=== PATIENT | male | born 1955 | race Caucasian/White ===

== ENCOUNTER → 2019-04-09 09:58 | Outpatient (CLI) | payer OTHER, SELFPAY ==
[2019-04-11 20:01] LABS: ANA Screen, IFA Negative (Negative)
== END ==
PROVIDERS: Visit Provider Family Medicine
DX: L30.9 Dermatitis, unspecified (principal)
CPT/HCPCS: 36415; 86038

== ENCOUNTER → 2019-10-21 14:01 | Outpatient (CLI) | payer OTHER, SELFPAY ==
[2019-10-21 15:52] LABS: Hemoglobin A1C% w Est Avg Glu 7.3 % (4.0-6.0)
[2019-10-21 16:02] LABS: BUN Creatinine Ratio 35.7 (6-22); Blood Urea Nitrogen 25 mg/dL (9-20); Calcium 9.4 mg/dL (8.4-10.2); Carbon Dioxide 27 mmol/L (22-32); Chloride 101 mmol/L (98-107); Cholesterol 216 mg/dL (140-199); Estimated Glomerular Filt Rate > 60.0 mL/min (>60); Glucose 146 mg/dL (80-110); HDL Cholesterol 92 mg/dL (40-60); HEMOLYSIS 16 (0-50); LDL Cholesterol Calculated 89 mg/dL (<100); Potassium 4.2 mmol/L (3.4-5.1); Sodium 139 mmol/L (137-145); Triglycerides 176 mg/dL (35-150)
[2019-10-21 16:30] LABS: Prostate Specific Antigen Scrn 1.84 ng/mL (0.1-4.0)
== END ==
PROVIDERS: PCP Student in an Organized Health Care Education/Training Program; Visit Provider Student in an Organized Health Care Education/Training Program
DX: E10.9 Type 1 diabetes mellitus without complications (principal); Z12.5 Encounter for screening for malignant neoplasm of prostate
CPT/HCPCS: 36415; 80048; 80061; 83036; G0103

== ENCOUNTER → 2019-11-11 07:55 | Outpatient (CLI) | payer OTHER, SELFPAY ==
--- NOTE | 2019-11-11 07:56 | DI.ECHO.S_ITS ---
[facility] +---------+ : : [address] : [place] [address] : : : : [id number] : : : : Phone: [phone]+ Echocardiogram Report + + :Name: JENNIE MAI Study Date: 11/11/2019 Height: 74 in : :[facility] Weight: 202 lb : : Gender: Male BSA: 2.2 m2 : :: 1955 Age: 64 yrs BP: 138/86 mmHg: :Reason For Study: FAMILY HISTORY OF AORTIC VALVE DISORDER : : Performed By: Shannan Aguilera : :Referring: REMA MARTÍNEZ : + + Interpretation Summary The left ventricle is normal in size. The ejection fraction is estimated to be 60-65%. The right ventricle is normal in size and function. There is a moderate calcification of chordae attached to the posterior mitral leaflet tip. No significant mitral stenosis. Mild mitral regurgitation. There is discrete nodular thickening of the non- coronary cusp. There is no aortic valve stenosis. No aortic regurgitation is present. Procedure: A two-dimensional transthoracic echocardiogram with color flow and Doppler was performed. The study quality was non-diagnostic. There is no prior echocardiogram noted for this patient. The patient was in sinus bradycardia with heart rates between 55-60 bpm during the exam. Left Ventricle: The left ventricle is normal in size. Left ventricular wall thickness is mildly increased. There is no thrombus. The ejection fraction is estimated to be 60-65%. Left ventricular wall motion is normal. MV E/A: 1.2 Med Peak E' Jamil: 7.7 cm/sec E/E' med: 13.3. Right Ventricle: The right ventricle is normal in size and function. Atria: The left atrium is mildly dilated. The right atrium is normal in size. There is no Doppler evidence for an interatrial shunt. Mitral Valve: There is mild mitral annular calcification. There is a moderate calcification of chordae attached to the posterior mitral leaflet tip. No significant mitral stenosis. Mild mitral regurgitation. There is mild mitral regurgitation. Aortic Valve: The aortic valve opens well. There is discrete nodular thickening of the non- coronary cusp. The aortic valve appears trileaflet. The aortic valve is mildly calcified. There is no aortic valve stenosis. No aortic regurgitation is present. Tricuspid Valve: The tricuspid valve is normal in structure and function. There is a trace or physiologic amount of tricuspid regurgitation. Pulmonary artery pressures cannot be estimated because of the lack of a measurable TR jet velocity. Pulmonic Valve: The pulmonic valve is normal in structure and function. There is a trace or physiologic amount of pulmonic regurgitation. Great Vessels: The aortic root is normal size. The ascending aorta is normal in size. The IVC is of normal diameter and collapses greater than 50% with a sniff. This suggests a low right atrial pressure of 3 mm Hg. Pericardium/ Pleura There is no pericardial effusion. MMode/2D Measurements & Calculations EPSS: 0.31 cm LVOT diam: 2.1 cm Ao root diam: 3.3 cm asc Aorta Diam: 3.3 cm LA A2 area: 25.2 cm2 RA long axis: 5.2 cm LA A4 area: 22.4 cm2 RA area: 18.8 cm2 LA length (vol): 5.3 cm RA vol: 57.7 ml LA vol: 90.0 ml RA : 26.4 ml/m2 LA vol index: 41.2 ml/m2 IVC diam: 2.0 cm RVD1 (basal): 3.6 cm RVD2 (mid): 3.1 cm TAPSE: 1.9 cm Doppler Measurements & Calculations Ao V2 max: 159.0 cm/sec LVOT Max Jamil: 122.2 cm/sec Ao V2 mean: 107.0 cm/sec LV V1 max P.0 mmHg Ao max P.1 mmHg LV V1 VTI: 28.8 cm Ao mean P.3 mmHg TIFFANY(I,D): 2.8 cm2 Ao V2 VTI: 36.7 cm TIFFANY(V,D): 2.7 cm2 sev ratio: 0.79 TIFFANY indexed to BSA (cm^2/m^2): 1.3 MV E max jamil: 102.6 cm/sec PA V2 max: 111.4 cm/sec MV A max jamil: 83.7 cm/sec PA V2 mean: 68.3 cm/sec MV E/A: 1.2 PA mean P.2 mmHg Med Peak E' Jamil: 7.7 cm/sec PA pr(Accel): 21.4 mmHg E/E' med: 13.3 PA Accel Time: 0.12 sec Lat Peak E' Jamil: 6.8 cm/sec E/E' lat: 15.0 E/e' average: 14.2 MV dec time: 0.25 sec MV P1/2t: 73.8 msec MV P1/2t max jamil: 102.8 cm/sec SV(LVOT): 102.4 ml MVA(P1/2t): 3.0 cm2 Reading Physician:12:38 PM
== END ==
PROVIDERS: PCP Student in an Organized Health Care Education/Training Program; Referring Provider Student in an Organized Health Care Education/Training Program; Visit Provider Student in an Organized Health Care Education/Training Program
DX: I34.0 Nonrheumatic mitral (valve) insufficiency (principal); Z82.49 Family history of ischemic heart disease and other diseases of the circulatory system
CPT/HCPCS: 93306

== ENCOUNTER → 2020-05-01 11:13 | Outpatient (CLI) | payer OTHER, SELFPAY ==
[2020-05-01 12:38] LABS: Hemoglobin A1C% w Est Avg Glu 7.6 % (4.0-6.0)
== END ==
PROVIDERS: PCP Student in an Organized Health Care Education/Training Program; Referring Provider Student in an Organized Health Care Education/Training Program; Visit Provider Student in an Organized Health Care Education/Training Program
DX: E10.9 Type 1 diabetes mellitus without complications (principal)
CPT/HCPCS: 36415; 83036

== ENCOUNTER 2020-06-28 19:29 | Emergency (ER) | payer OTHER, SELFPAY ==
[2020-06-28 19:35] VITALS: BP 178/87; PULSE 68; RESP 17; TEMP 36.9; O2SAT 96; BMI 25.9
--- NOTE | 2020-06-28 21:03 | ED.GENADULT ---
HPI - General Adult General Chief complaint: Diabetic Problem Stated complaint: thinks he took too much insulin Time Seen by Provider: 06/28/20 20:37 Source: patient and family Mode of arrival: Ambulatory Limitations: no limitations History of Present Illness HPI narrative: Patient here with . Uncertain if he took double dose of his Lantus tonight. He is very routine , very organized with taking his insulin for number years. He took his usual 21 units of Lantus at 6:00 p.m. just prior to eating dinner. At 7:00 p.m. he was watching the vice presidential debate and was distracted and is uncertain if he took a 2nd dose of the 21 units of Lantus. He did drink supplemental sugary drink prior to arrival. He has not encountered any hypoglycemia with regular Accu-Cheks nearly every 30 minutes since then. Just now it was 210. 9:00 p.m.. Patient desires discharge home and will continue to take Accu-Cheks every hour through the night. He will set his alarm. No no nausea vomiting sweating seizures altered mental status or confusion tonight. Related Data Home Medications Medication Instructions Recorded Confirmed aspirin 81 mg tablet,delayed 81 mg PO DAILY 10/21/19 10/21/19 release Previous Rx's Medication Instructions Recorded insulin glargine 100 unit/mL 45 unit SUBCUT BEDTIME #40 ml 11/11/19 subcutaneous solution insulin lispro 100 unit/mL See Rx Instructions SUBCUT QAC #40 11/11/19 subcutaneous solution ml MDD 50units simvastatin 10 mg tablet 10 mg PO BEDTIME #90 tab 11/11/19 flash glucose scanning reader #1 each 11/30/19 flash glucose sensor #1 each 03/02/20 peg 3350-electrolytes 236 240 ml PO Q10M #4000 ml 04/13/20 gram-22.74 gram-6.74 gram-5.86 gram solution lisinopril 20 mg tablet See Rx Instructions .ROUTE 05/25/20 .COMPLEX #90 tab Allergies Allergy/AdvReac Type Severity Reaction Status Date / Time Sulfa (Sulfonamide Allergy Unknown Unverified 10/21/19 12:50 Antibiotics) [SULFA (SULFONAMIDE ANTIBIOTICS)] Review of Systems Review of Systems Narrative: GENERAL: Denies chills, fatigue, malaise, fever, sweats. HEENT: Denies sinus pain, ear pain, sore throat, difficulty swallowing, dizziness. RESPIRATORY: Denies dyspnea, cough, wheezing, hemoptysis, sputum. CARDIOVASCULAR: Denies chest pain, palpitations, orthopnea, edema, GASTROINTESTINAL: Denies nausea, vomiting, abdominal pain, diarrhea, constipation, melena. : Denies dysuria, frequency, incontinence, hematuria, urinary retention. MUSCULOSKELETAL: denies weakness, joint pain, or bony pain SKIN: Denies rash, skin lesions NEUROLOGIC: Denies weakness, headache, numbness, change in speech, confusion, seizures, incoordination. PSYCHIATRIC: No concerning psychosocial issues. ROS Unobtainable: All systems reviewed & are unremarkable except as noted in HPI and below Patient History Medical History Photosensitivity (Chronic) Surgical History Anesthesia (Resolved) Finger injury (Resolved ~2017) History of appendectomy (Resolved ~1973) History of vasectomy (Resolved ~1990) Family History Father Hypertension Brother Hypertension Social History Smoking Status: Former smoker Smoking Status: Former smoker alcohol intake frequency: 0-2 drinks per day Substance Use Type: does not use Exam Narrative Exam Narrative: GENERAL: patient appears stated age. Well-nourished, well-developed patient, in no distress, not toxic HEAD: Atraumatic. Normocephalic. EYES: Pupils equal round and reactive. Extraocular motions intact. No scleral icterus. No injection or drainage. NECK: Trachea midline. Non tender CARDIOVASCULAR: Regular rate and rhythm without murmurs, gallops, or rubs. RESPIRATORY: Clear to auscultation. Breath sounds equal bilaterally. No wheezes, rales, or rhonchi. NEURO: AOx4. Clear speech no facial droop. Awake alert oriented x4. No altered mental status. SKIN: No rash or erythema of visible areas. Dry skin PSYCH: Not anxious, is cooperative Initial Vital Signs Initial Vital Signs: Vital Signs Temperature 98.5 F 06/28/20 19:35 Pulse Rate 68 06/28/20 19:35 Respiratory Rate 17 06/28/20 19:35 Blood Pressure 178/87 H 06/28/20 19:35 Pulse Oximetry 96 06/28/20 19:35 Course Course Course Narrative: No hypoglycemic event here. Reevaluation(s) Reevaluation #1: Patient and desire discharge home and to continue Accu-Cheks hourly through the tonight. They do not want admission to the hospital Time: 21:09 Vital Signs Vital signs: Vital Signs - 8 hr 06/28/20 19:35 Temperature 98.5 F Pulse Rate 68 Respiratory Rate 17 Blood Pressure 178/87 H Pulse Oximetry 96 Medical Decision Making Lab Data Labs: Point of Care Testing Glucose POC 192 Point of care testing: Point of Care Testing Glucose POC 192 MDM Narrative Medical decision making narrative: Appropriate for discharge home. Patient is reliable for Accu-Cheks through the rest tonight. is also responsible to help out as well. No additional labs indicated this time. Discharge Plan Departure Patient Disposition: Home Clinical Impression: Well adult Discharge Date/Time: 06/28/20 21:19 Instructions: DI for Diabetes Type 1 -- Adult Activity Restrictions/Additional Instructions: Continue hourly glucose/Accu-Chek through this evening as planned with family. Set your alarm. Return if worse if any sweating seizures confusion nausea or vomiting. Return if blood sugar less than 60 Prescriptions: No Action Lantus U-100 Insulin 100 unit/mL solution 45 unit subcut BEDTIME Qty: 40 RF: 11 insulin lispro [Humalog U-100 Insulin] 100 unit/mL solution See Rx Instructions subcut QAC MDD 50units Qty: 40 RF: 11 simvastatin 10 mg tablet 10 mg PO BEDTIME Qty: 90 RF: 1 (DME) FreeStyle Nneka 14 Day [place] Misc See Rx Instructions .ROUTE .MEDSUPPLY Qty: 1 RF: 0 (DME) FreeStyle Nneka 14 Day Sensor Kit See Rx Instructions .ROUTE .MEDSUPPLY Qty: 1 RF: 3 peg 3350-electrolytes [Golytely] 236-22.74-6.74 -5.86 gram recon soln 240 ml PO Q10M Qty: 4000 RF: 0 lisinopril 20 mg tablet See Rx Instructions .ROUTE .COMPLEX Qty: 90 RF: 1 aspirin 81 mg tablet,delayed release (DR/EC) 81 mg PO DAILY RF: 0 Referrals: Kirk Wynn MD [Primary Care Provider] -
== END 2020-06-28 21:19 | disposition home or self-care (01) ==
PROVIDERS: Emergency Provider Emergency Medicine; PCP Student in an Organized Health Care Education/Training Program
DX: E10.9 Type 1 diabetes mellitus without complications (principal)
CPT/HCPCS: 99281

== ENCOUNTER → 2020-07-24 09:22 | Outpatient (CLI) | payer OTHER, SELFPAY ==
[2020-07-26 08:20] LABS: COVID19 Sendout Not Detected (Not Detect)
== END ==
PROVIDERS: PCP Student in an Organized Health Care Education/Training Program; Visit Provider Physician Assistant
DX: Z11.59 Encounter for screening for other viral diseases (principal)
CPT/HCPCS: 87635

== ENCOUNTER 2020-07-27 06:41 | Day surgery (SDC) | payer OTHER, SELFPAY ==
[2020-07-27 07:05] VITALS: BP 179/85; PULSE 62; RESP 20; TEMP 36.5; O2SAT 98; BMI 25.2
[2020-07-27] MEDS: LACTATED RINGERS 1,000 ML 200 ML IV (07:14)
--- NOTE | 2020-07-27 07:28 | PM.HP.1 ---
History of Present Illness History of Present Illness Date Patient Seen: 07/27/20 Time Patient Seen: 07:28 Chief complaint: SCREENING COLONOSCOPY Narrative: The patient is a gentleman here for screening colonoscopy. His last exam was 3 or 4 years ago. He has had polyps removed in the past. No family history of colon cancer. Patient History Medical History Photosensitivity (Chronic) Surgical History Anesthesia (Resolved) Finger injury (Resolved ~2017) History of appendectomy (Resolved ~1973) History of vasectomy (Resolved ~1990) Family & Social History Family History Father Hypertension Brother Hypertension Social History: household members spouse Tobacco & Substance use: Smoking Status Former smoker alcohol intake frequency 0-2 drinks per day Substance Use Type does not use Meds Home Medications and Allergies Home Medications Medication Instructions Recorded Confirmed Type aspirin 81 mg tablet,delayed 81 mg PO DAILY 10/21/19 07/27/20 History release insulin glargine 100 unit/mL 45 unit SUBCUT BEDTIME #40 ml 11/11/19 07/27/20 Rx subcutaneous solution insulin lispro 100 unit/mL See Rx Instructions SUBCUT QAC #40 11/11/19 07/27/20 Rx subcutaneous solution ml MDD 50units simvastatin 10 mg tablet 10 mg PO BEDTIME #90 tab 11/11/19 07/27/20 Rx flash glucose scanning reader #1 each 11/30/19 Rx flash glucose sensor #1 each 03/02/20 Rx lisinopril 20 mg tablet See Rx Instructions .ROUTE 05/25/20 07/27/20 Rx .COMPLEX #90 tab Allergies Allergy/AdvReac Type Severity Reaction Status Date / Time Sulfa (Sulfonamide Allergy Unknown Verified 07/27/20 07:03 Antibiotics) [SULFA (SULFONAMIDE ANTIBIOTICS)] Review of Systems Review of Systems Narrative: Patient is a type 1 diabetic. Sugar at home was 167 ROS: Yes All systems reviewed with the patient and are negative except as otherwise documented Exam Vital Signs (past 8 hours): - 07/27/20 07:05 Temperature 97.7 F Pulse Rate 62 Respiratory Rate 20 Blood Pressure 179/85 H Pulse Oximetry 98 Oxygen Delivery Method Room Air Narrative Exam Narrative: Pleasant cooperative patient no apparent distress. Lungs are clear to auscultation. No rales or rhonchi. Heart regular rate and rhythm no murmur gallop. Abdomen is soft nontender without mass. No obvious hernias. Patient is alert and oriented x3. Assessment & Plan Assessment & Plan narrative: The patient for a screening colonoscopy. I have discussed the procedure with them. Risks of bleeding, perforation which would necessitate major operation, failure to find remove all lesions, the potential tattoo were all discussed. All questions were answered. They wished to proceed.
--- NOTE | 2020-07-27 07:29 | PM.PREOP ---
Pre-operative Note COVID-19 COVID-19 status: Negative Result date/Date tested (Pos, Neg/Pending): 07/24/20 Interval Note History & Physical reviewed/Exam performed by Physician: Yes Changes to H&P: No ASA Class (for procedural sedation): II
[2020-07-27] MEDS: MIDAZOLAM 5 MG/5 ML VIAL IV ×2 (07:32→08:05)
[2020-07-27] MEDS: fentaNYL 250 MCG/5 ML INJ IV ×2 (07:32→08:06)
[2020-07-27 08:12] VITALS: BP 161/97; PULSE 55; RESP 12; TEMP 37.1; O2SAT 96
[2020-07-27 08:17] VITALS: BP 154/87; PULSE 62; RESP 20; O2SAT 96
[2020-07-27 08:23] VITALS: BP 131/86; PULSE 54; RESP 14; O2SAT 94
--- NOTE | 2020-07-27 08:25 | PM.OP.ENDO ---
Operative Date/Time/Diagnoses Date of procedure: 07/27/20 Time of procedure: 08:20 Pre-op diagnosis: Screening exam. Last exam 3 or 4 years ago. Post-op diagnosis: same (Extensive sigmoid diverticulosis with stricture) Procedure & Clinicians Study performed: Colonoscopy Same procedure as scheduled: Yes Indications: Screening Surgeon: Rod Gaffney Procedure Notes SCOAP/Timeout: Performed Procedure in detail: The patient was placed in the left lateral decubitus position and underwent IV sedation directed by the surgeon consisting of fentanyl and Versed. Digital exam was remarkable for mild enlargement of his prostate. No palpable mass.. The scope was inserted and advanced through the rectum into the sigmoid. The sigmoid was pocketed with numerous diverticuli and there was some narrowing and tortuosity. I actually withdrew the scope and obtained a pediatric scope and reinserted it. The scope was passed through the sigmoid into the descending transverse and ascending colon. The cecum was reached identified by the ileocecal valve. Small portion of the cecum was not well seen. The scope was gradually brought out. No Polyps were found. The scope had been retroflexed in the rectum at the initial attempt.. The appearance was normal. The scope was removed and the patient tolerated the procedure well. The prep was adequate Scope withdrawal time: almost 8 min Sedation minutes: 33 Findings: diverticulosis (Extensive sigmoid with narrowing and tortuosity) Specimen(s): none sent Post-procedure Recommendations: Colonscopy in 5 years Follow up: as needed Disposition: PACU
[2020-07-27 08:29] VITALS: BP 166/90; PULSE 62; RESP 15; TEMP 36.8; O2SAT 97
[2020-07-27 08:31] VITALS: BP 146/83; PULSE 55; RESP 12; TEMP 36.8; O2SAT 97
--- NOTE | 2020-07-27 08:36 | SUR.PHASEII ---
0835 - Report to Juliana Gutierrez RN.
== END 2020-07-27 08:45 | disposition home or self-care (01) ==
PROVIDERS: PCP Student in an Organized Health Care Education/Training Program; Referring Provider Specialist; Visit Provider Specialist
PROC: 0DJD8ZZ Inspection of Lower Intestinal Tract, Via Natural or Artificial Opening Endoscopic (ICD-10-PCS; CPT 45378; principal; 2020-07-27 07:45)
DX: Z12.11 Encounter for screening for malignant neoplasm of colon (principal); Z86.010 Personal history of colon polyps; K57.30 Diverticulosis of large intestine without perforation or abscess without bleeding
CPT/HCPCS: 45378; 99152; 99153; J2250; J3010

== ENCOUNTER → 2020-08-09 12:18 | Outpatient (CLI) | payer OTHER, SELFPAY ==
[2020-08-09 13:17] LABS: Hemoglobin A1C% w Est Avg Glu 7.7 % (4.0-6.0)
== END ==
PROVIDERS: PCP Student in an Organized Health Care Education/Training Program; Referring Provider Student in an Organized Health Care Education/Training Program; Visit Provider Student in an Organized Health Care Education/Training Program
DX: E10.9 Type 1 diabetes mellitus without complications (principal)
CPT/HCPCS: 36415; 83036

== ENCOUNTER → 2020-09-11 08:09 | Outpatient (CLI) | payer MEDICARE, OTHER, SELFPAY ==
--- NOTE | 2020-09-11 08:10 | DI.US.S_ITS ---
PROCEDURE: US ABD AORTA ANEURYSM SCREEN INDICATIONS: SCREENING FOR ABDOMINAL AORTIC ANEURYSM TECHNIQUE: Real time scanning was performed of the aorta and iliac arteries, with image documentation. COMPARISON: None. FINDINGS: Aorta: Proximal aortic diameter measures 2.1 x 2.0 cm. Mid-aorta measures 1.8 x 1.9 cm. Distal aortic diameter is 2.0 x 2.1 cm. Iliac arteries: Not well visualized due to overlying bowel gas. IMPRESSION: Normal abdominal aorta with no aneurysm. Dictated by: Sean Parsons M.D. on 09/11/2020 at 9:56 Approved by: Sean Parsons M.D. on 09/11/2020 at 10:12
== END ==
PROVIDERS: PCP Student in an Organized Health Care Education/Training Program; Referring Provider Student in an Organized Health Care Education/Training Program; Visit Provider Student in an Organized Health Care Education/Training Program
DX: Z13.6 Encounter for screening for cardiovascular disorders (principal); Z87.891 Personal history of nicotine dependence
CPT/HCPCS: 76706

== ENCOUNTER → 2020-11-21 08:54 | Outpatient (CLI) | payer MEDICARE, OTHER, SELFPAY ==
[2020-11-21 10:24] LABS: Hemoglobin A1C% w Est Avg Glu 7.6 % (4.0-6.0)
== END ==
PROVIDERS: PCP Student in an Organized Health Care Education/Training Program; Referring Provider Student in an Organized Health Care Education/Training Program; Visit Provider Student in an Organized Health Care Education/Training Program
DX: E10.9 Type 1 diabetes mellitus without complications (principal); Z12.5 Encounter for screening for malignant neoplasm of prostate
CPT/HCPCS: 36415; 83036; G0103

== ENCOUNTER → 2021-03-07 09:54 | Outpatient (CLI) | payer MEDICARE, OTHER, SELFPAY ==
[2021-03-07 10:44] LABS: Hemoglobin A1C% w Est Avg Glu 7.7 % (4.0-6.0)
== END ==
PROVIDERS: PCP Student in an Organized Health Care Education/Training Program; Referring Provider Student in an Organized Health Care Education/Training Program; Visit Provider Student in an Organized Health Care Education/Training Program
DX: E10.9 Type 1 diabetes mellitus without complications (principal)
CPT/HCPCS: 36415; 83036

== ENCOUNTER → 2021-07-11 15:28 | Outpatient (CLI) | payer MEDICARE, OTHER, SELFPAY ==
[2021-07-11 16:27] LABS: Hemoglobin A1C% w Est Avg Glu 7.7 % (4.0-6.0)
[2021-07-11 17:47] LABS: Creatinine Urine Random 124.1 mg/dL
[2021-07-11 17:49] LABS: Microalbumi Creatinin Ratio Ur 6.4 ug/mg CR (<30); Microalbumin Urine Random 0.8 mg/dL (0-1.6)
[2021-07-11 17:53] LABS: Blood Urea Nitrogen 24 mg/dL (9-20); Calcium 9.4 mg/dL (8.4-10.2); Carbon Dioxide 28 mmol/L (22-32); Chloride 103 mmol/L (98-107); Estimated Glomerular Filt Rate > 60.0 mL/min (>60); Glucose 135 mg/dL (80-110); HEMOLYSIS < 15 (0-50); Potassium 3.9 mmol/L (3.4-5.1); Sodium 137 mmol/L (137-145)
== END ==
PROVIDERS: PCP Student in an Organized Health Care Education/Training Program; Referring Provider Student in an Organized Health Care Education/Training Program; Visit Provider Student in an Organized Health Care Education/Training Program
DX: E10.9 Type 1 diabetes mellitus without complications (principal)
CPT/HCPCS: 36415; 80048; 82043; 82570; 83036

== ENCOUNTER → 2021-11-02 11:37 | Outpatient (CLI) | payer MEDICARE, OTHER, SELFPAY ==
[2021-11-02 12:52] LABS: Hemoglobin A1C% w Est Avg Glu 7.7 % (4.0-6.0)
== END ==
PROVIDERS: PCP Student in an Organized Health Care Education/Training Program; Referring Provider Student in an Organized Health Care Education/Training Program; Visit Provider Student in an Organized Health Care Education/Training Program
DX: E10.9 Type 1 diabetes mellitus without complications (principal)
CPT/HCPCS: 36415; 83036

== ENCOUNTER → 2022-02-12 09:15 | Outpatient (CLI) | payer MEDICARE, OTHER, SELFPAY ==
[2022-02-12 10:03] LABS: Hemoglobin A1C% w Est Avg Glu 7.5 % (4.0-6.0)
[2022-02-12 10:19] LABS: Blood Urea Nitrogen 17 mg/dL (9-20); Estimated Glomerular Filt Rate > 60 mL/min (>60)
[2022-02-12 10:43] LABS: Prostate Specific Antigen Scrn 2.11 ng/mL (0.1-4.0)
== END ==
PROVIDERS: PCP Student in an Organized Health Care Education/Training Program; Referring Provider Student in an Organized Health Care Education/Training Program; Visit Provider Student in an Organized Health Care Education/Training Program
DX: E10.9 Type 1 diabetes mellitus without complications (principal); Z12.5 Encounter for screening for malignant neoplasm of prostate
CPT/HCPCS: 36415; 82565; 83036; 84520; G0103

== ENCOUNTER → 2022-09-05 14:14 | Outpatient (CLI) | payer MEDICARE, OTHER, SELFPAY ==
[2022-09-05 15:35] LABS: BUN Creatinine Ratio 26.7 (6-22); Blood Urea Nitrogen 24 mg/dL (9-20); Calcium 9.2 mg/dL (8.4-10.2); Carbon Dioxide 27 mmol/L (22-32); Chloride 100 mmol/L (98-107); Cholesterol 198 mg/dL (140-199); Estimated Glomerular Filt Rate > 60 mL/min (>60); Glucose 262 mg/dL (80-110); HEMOLYSIS < 15 (0-50); Potassium 4.3 mmol/L (3.4-5.1); Sodium 137 mmol/L (137-145); Triglycerides 86 mg/dL (35-150)
[2022-09-05 15:54] LABS: HDL Cholesterol 121 mg/dL (40-60); LDL Cholesterol Calculated 60 mg/dL (<100)
== END ==
PROVIDERS: PCP Student in an Organized Health Care Education/Training Program; Referring Provider Student in an Organized Health Care Education/Training Program; Visit Provider Student in an Organized Health Care Education/Training Program
DX: E10.69 Type 1 diabetes mellitus with other specified complication (principal); E78.2 Mixed hyperlipidemia; H10.021 Other mucopurulent conjunctivitis, right eye
CPT/HCPCS: 36415; 80048; 80061; 82043; 82570; 83036; 87070; 87075; 87205

== ENCOUNTER → 2022-09-05 16:09 | Outpatient (CLI) | payer MEDICARE, OTHER, SELFPAY ==
[2022-09-05 18:36] LABS: Creatinine Urine Random 87.6 mg/dL
[2022-09-05 18:40] LABS: Microalbumi Creatinin Ratio Ur 31.9 ug/mg CR (<30); Microalbumin Urine Random 2.8 mg/dL (0-1.6)
== END ==
PROVIDERS: PCP Student in an Organized Health Care Education/Training Program; Referring Provider Ophthalmology; Visit Provider Ophthalmology
DX: H10.021 Other mucopurulent conjunctivitis, right eye (principal); E10.69 Type 1 diabetes mellitus with other specified complication; E78.2 Mixed hyperlipidemia
CPT/HCPCS: 82043; 82570

== ENCOUNTER → 2022-09-05 17:45 | Outpatient (ROUT) | payer MEDICARE, OTHER, SELFPAY | PROVIDERS: PCP Student in an Organized Health Care Education/Training Program; Visit Provider Ophthalmology | DX: H10.021 Other mucopurulent conjunctivitis, right eye (principal) | CPT/HCPCS: 87070; 87075; 87205 ==

== ENCOUNTER → 2022-11-25 10:48 | Outpatient (CLI) | payer MEDICARE, OTHER, SELFPAY ==
[2022-11-25 12:09] LABS: Add Manual Diff / Slide Review NO; Basophils Absolute Auto 0 /uL (0-100); Basophils Percent Auto 0.7 % (0-2); Eosinophils Absolute Auto 100 /uL (0-450); Eosinophils Percent Auto 1.6 % (2-4); Hematocrit 41.7 % (41-53); Hemoglobin 14.4 g/dL (13.5-17.5); Lymphocytes Absolute Auto 1000 /uL (1100-4500); Lymphocytes Percent Auto 22.1 % (25-40); Mean Corpuscular HGB Conc 34.5 % (30-36); Mean Corpuscular Hemoglobin 30.2 PG (26-34); Mean Corpuscular Volume 87.5 fL (80-100); Monocytes Absolute Auto 600 /uL (0-900); Neutrophils Absolute Auto 2900 /uL (1500-7000); Neutrophils Percent Auto 63.6 % (50-75); Platelet Count 199 X10^3/uL (150-400); Red Blood Cell Count 4.76 X10^6/uL (4.5-5.9); Red Cell Distribution Width 12.4 % (11.6-14.8); White Blood Cell Count 4.6 X10^3/uL (4.5-11.0)
[2022-11-25 12:23] LABS: Hemoglobin A1C% w Est Avg Glu 7.7 % (4.0-6.0)
[2022-11-25 12:35] LABS: Alanine Aminotransferase 61 IU/L (<50); Albumin 4.5 g/dL (3.5-5.0); Albumin Globulin Ratio 1.5 (1.0-2.8); Alkaline Phosphatase 76 U/L (38-126); Aspartate Aminotransferase 44 IU/L (17-59); BUN Creatinine Ratio 29.3 (6-22); Bilirubin Total 0.7 mg/dL (0.2-1.3); Blood Urea Nitrogen 22 mg/dL (9-20); Carbon Dioxide 27 mmol/L (22-32); Chloride 99 mmol/L (98-107); Estimated Glomerular Filt Rate > 60 mL/min (>60); Globulin 3.1 g/dL (1.7-4.1); Glucose 203 mg/dL (80-110); HEMOLYSIS < 15 (0-50); Sodium 135 mmol/L (137-145); Total Protein 7.6 g/dL (6.3-8.2)
[2022-11-25 12:58] LABS: TSH w/ Reflex to FT4 0.74 uIU/mL (0.47-4.68)
[2022-11-25 15:35] LABS: Creatinine Urine Random 135.5 mg/dL
[2022-11-25 15:42] LABS: Microalbumi Creatinin Ratio Ur 11.8 ug/mg CR (<30); Microalbumin Urine Random 1.6 mg/dL (0-1.6)
== END ==
PROVIDERS: PCP Student in an Organized Health Care Education/Training Program; Referring Provider Student in an Organized Health Care Education/Training Program; Visit Provider Student in an Organized Health Care Education/Training Program
DX: E10.9 Type 1 diabetes mellitus without complications (principal); I10 Essential (primary) hypertension; R80.9 Proteinuria, unspecified
CPT/HCPCS: 36415; 80053; 82043; 82088; 82570; 83036; 84244; 84443; 85025

== ENCOUNTER → 2023-08-20 13:45 | Outpatient (CLI) | payer MEDICARE, OTHER, SELFPAY ==
[2023-08-20 15:00] LABS: Alanine Aminotransferase 42 IU/L (<50); Albumin 4.6 g/dL (3.5-5.0); Albumin Globulin Ratio 1.6 (1.0-2.8); Alkaline Phosphatase 67 U/L (38-126); Aspartate Aminotransferase 39 IU/L (17-59); BUN Creatinine Ratio 26.3 (6-22); Bilirubin Total 0.6 mg/dL (0.2-1.3); Blood Urea Nitrogen 20 mg/dL (9-20); Calcium 9.9 mg/dL (8.4-10.2); Carbon Dioxide 28 mmol/L (22-32); Chloride 102 mmol/L (98-107); Estimated Glomerular Filt Rate > 60 mL/min (>60); Globulin 2.8 g/dL (1.7-4.1); Glucose 91 mg/dL (80-110); HEMOLYSIS < 15 (0-50); Potassium 4.3 mmol/L (3.4-5.1); Sodium 136 mmol/L (137-145); Total Protein 7.4 g/dL (6.3-8.2)
== END ==
PROVIDERS: PCP Physician Assistant; Referring Provider Physician Assistant; Visit Provider Physician Assistant
DX: Z12.5 Encounter for screening for malignant neoplasm of prostate (principal); E10.9 Type 1 diabetes mellitus without complications; R74.8 Abnormal levels of other serum enzymes
CPT/HCPCS: 36415; 80053; G0103

== ENCOUNTER → 2024-03-23 16:10 | Outpatient (CLI) | payer MEDICARE, OTHER, SELFPAY ==
[2024-03-23 17:42] LABS: Cholesterol 179 mg/dL (140-199); Triglycerides 97 mg/dL (35-150)
[2024-03-23 17:51] LABS: HDL Cholesterol 119 mg/dL (40-60); LDL Cholesterol Calculated 41 mg/dL (<100)
[2024-03-23 18:12] LABS: Creatinine Urine Random 75.84 mg/dL
[2024-03-23 18:17] LABS: Microalbumin Urine Random 1.6 mg/dL (0-1.6)
== END ==
PROVIDERS: PCP Internal Medicine; Referring Provider Internal Medicine; Visit Provider Internal Medicine
DX: E78.2 Mixed hyperlipidemia (principal); E10.9 Type 1 diabetes mellitus without complications
CPT/HCPCS: 80061; 82043; 82570

== ENCOUNTER 2024-04-23 20:15 | Emergency (ER) | payer MEDICARE, OTHER, SELFPAY ==
[2024-04-23] VITALS (16 sets, daily range): BP systolic 117–151; BP diastolic 56–63; PULSE 29–54; RESP 14–21; TEMP 36.8; O2SAT 95–99; BMI 28.0
--- NOTE | 2024-04-23 20:21 | DI.RAD.S_ITS ---
PROCEDURE: XR CHEST 1V INDICATIONS: syncope TECHNIQUE: One view of the chest was acquired. COMPARISON: None. FINDINGS: Surgical changes and devices: None. Lungs and pleura: No dense consolidation or pleural effusion Mediastinum: Heart size within normal limits Bones and chest wall: Degenerative findings IMPRESSION: No acute radiographic abnormality on this single view study. Dictated by: Ayaz Guido M.D. on 04/23/2024 at 20:45 Approved by: Ayaz Guido M.D. on 04/23/2024 at 20:45
--- NOTE | 2024-04-23 20:27 | ED_ITS ---
HPI - Syncope General Chief Complaint: Syncope Stated Complaint: syncope Time Seen by Provider: 04/23/24 20:17 Source: patient and EMS Mode of arrival: EMS History of Present Illness HPI narrative: 69-year-old male with history of type 1 diabetes, hypertension presents by EMS from home for syncope. Patient states that today he was had multiple episodes where he was felt dizzy and lightheaded, nearly passing out. This evening after dinner the patient appeared to have a brief syncopal episode while sitting on the couch witnessed by , so she called 911. Patient noted to be profoundly bradycardic on their arrival with pulse rate in the 30s. Patient states it was normal heart rate is about 50 beats per minute. He takes diltiazem and labetalol daily. He states that he has taken his normal amount of medications and is certain that he has not take an extra on accident Related Data Home Medications Medication Instructions Recorded Confirmed latanoprost 0.005 % eye drops drp EYE-BOTH 08/20/23 03/23/24 subcutaneous insulin pump (iLet 03/23/24 03/23/24 Insulin Pump) Previous Rx's Medication Instructions Recorded insulin lispro 100 unit/mL See Rx Instructions .Route 11/24/23 subcutaneous solution (Humalog .COMPLEX #180 mL U-100 Insulin) losartan 100 mg tablet 100 mg PO DAILY #90 tabs 11/24/23 rosuvastatin 10 mg tablet 10 mg PO DAILY #90 tabs 11/25/23 diltiazem HCl 240 mg capsule,24 480 mg (2 x 240 mg) PO DAILY #180 12/08/23 hr,extended release caps labetalol 100 mg tablet 100 mg PO BID #180 tabs 03/09/24 minoxidil 2.5 mg tablet 2.5 mg PO DAILY #90 tabs 03/23/24 BD Insulin Syringes 3/10 ML #350 ea 04/06/24 Allergies Allergy/AdvReac Type Severity Reaction Status Date / Time Sulfa (Sulfonamide Allergy Severe Anaphylaxis Verified 04/23/24 20:22 Antibiotics) [SULFA (SULFONAMIDE ANTIBIOTICS)] lisinopril AdvReac Mild Cough Verified 04/23/24 20:22 Patient History Medical History Venous (peripheral) insufficiency Mixed hyperlipidemia Photosensitivity Family history of aortic valve disorder Surgical History Anesthesia Finger injury (~2017) History of vasectomy (~1990) History of appendectomy (~1973) Family History Father Hypertension Brother Hypertension Other Family history of aortic valve disorder Social History details: , no kids, retired sales/vendor household members: spouse Smoking Status: Former smoker Smoking Status: Former smoker alcohol intake frequency: 0-2 drinks per day Substance Use Type: does not use Exam Initial Vital Signs Initial Vital Signs: Vital Signs Pulse Oximetry 99 04/23/24 20:18 Const: Awake, alert, no acute distress, nontoxic appearing Cardiac: Bradycardia, regular rhythm RESP: unlabored, clear bilaterally, no wheezing GI: Soft, nontender, nondistended, no rebound, no guarding MSK: Atraumatic, full range of motion, pulses equal Skin: Warm, Dry, intact, no rashes Neuro: AO x3, CN II-XII grossly intact, moves all extremities Course Orders Ordered: ED Orders 04/23/24 20:10 CBC Auto Diff [Complete Blood Count AUTO DIFF] Stat CMP [Comprehensive Metabolic Panel] Stat MAG [Magnesium] Stat PT [Prothrombin Time INR] Stat Troponin & CK Cardiac Panel Stat 04/23/24 20:21 Chest [XR chest 1V] Stat EKG-12 Lead Stat Vital Signs Vital signs: Vital Signs - 8 hr 04/23/24 21:30 04/23/24 21:31 04/23/24 21:31 Pulse Rate 33 L 32 L Respiratory Rate 19 14 Blood Pressure 130/60 Pulse Oximetry 96 97 Oxygen Delivery Method 04/23/24 22:00 04/23/24 22:01 04/23/24 22:01 Pulse Rate 33 L 32 L Respiratory Rate 17 18 Blood Pressure 123/58 L Pulse Oximetry 97 96 Oxygen Delivery Method 04/23/24 22:30 04/23/24 22:31 04/23/24 22:31 Pulse Rate 32 L 32 L Respiratory Rate 17 17 Blood Pressure 121/58 L Pulse Oximetry 96 96 Oxygen Delivery Method 04/23/24 23:00 04/23/24 23:01 04/23/24 23:01 Pulse Rate 31 L 30 L Respiratory Rate 15 19 Blood Pressure 127/59 L Pulse Oximetry 96 97 Oxygen Delivery Method 04/23/24 23:30 04/23/24 23:31 04/23/24 23:31 Pulse Rate 29 L 29 L Respiratory Rate 15 14 Blood Pressure 117/56 L Pulse Oximetry 96 96 Oxygen Delivery Method Room Air 04/24/24 00:00 04/24/24 00:09 04/24/24 00:30 Pulse Rate 31 L 29 L 29 L Respiratory Rate 18 21 26 H Blood Pressure Pulse Oximetry 98 98 97 Oxygen Delivery Method Room Air Room Air 04/24/24 00:31 04/24/24 00:31 04/24/24 01:00 Pulse Rate 28 L 30 L Respiratory Rate 20 16 Blood Pressure 113/56 L Pulse Oximetry 98 97 Oxygen Delivery Method Room Air 04/24/24 01:01 04/24/24 01:01 04/24/24 01:30 Pulse Rate 30 L 32 L Respiratory Rate 16 20 Blood Pressure 117/57 L Pulse Oximetry 98 96 Oxygen Delivery Method 04/24/24 01:31 04/24/24 01:31 04/24/24 02:00 Pulse Rate 32 L 30 L Respiratory Rate 18 17 Blood Pressure 108/59 L Pulse Oximetry 97 97 Oxygen Delivery Method Room Air 04/24/24 02:01 04/24/24 02:01 04/24/24 02:30 Pulse Rate 30 L 31 L Respiratory Rate 18 24 Blood Pressure 111/57 L Pulse Oximetry 98 96 Oxygen Delivery Method Room Air Room Air 04/24/24 02:31 04/24/24 02:31 04/24/24 03:00 Pulse Rate 30 L 29 L Respiratory Rate 21 17 Blood Pressure 111/58 L Pulse Oximetry 97 97 Oxygen Delivery Method Room Air 04/24/24 03:01 04/24/24 03:01 Pulse Rate 29 L Respiratory Rate 18 Blood Pressure 135/61 Pulse Oximetry 95 Oxygen Delivery Method MDM - Syncope Differential Diagnosis Differential diagnosis: Likely syncope due to orthostatic hypotension, vasovagal syncope and complete atrioventricular block Lab Data 04/23/24 20:10 04/23/24 20:10 Labs: Lab Results 04/23/24 Range/Units 20:10 WBC 6.3 (4.5-11.0) X10^3/uL RBC 4.57 (4.5-5.9) X10^6/uL Hgb 13.8 (13.5-17.5) g/dL Hct 40.7 L (41-53) % MCV 89.1 (80-100) fL MCH 30.2 (26-34) PG MCHC 33.8 (30-36) % RDW 13.2 (11.6-14.8) % Plt Count 160 (150-400) X10^3/uL Neut % (Auto) 71.6 (50-75) % Lymph % (Auto) 13.5 L (25-40) % [place] % (Auto) 12.8 (3-14) % Eos % (Auto) 1.4 L (2-4) % Baso % (Auto) 0.7 (0-2) % Neut # (Auto) 4500 (4785-3653) /uL Lymph # (Auto) 800 L (1969-8813) /uL [place] # (Auto) 800 (0-900) /uL Eos # (Auto) 100 (0-450) /uL Baso # (Auto) 0 (0-100) /uL PT 12.0 (9.4-12.5) SECONDS INR 1.0 (0.9-1.3) Sodium 136 L (137-145) mmol/L Potassium 4.5 (3.4-5.1) mmol/L Chloride 107 (98-107) mmol/L Carbon Dioxide 22 (22-32) mmol/L BUN 25 H (9-20) mg/dL Creatinine 1.06 (0.66-1.25) mg/dL Estimated GFR > 60 (>60) mL/min BUN/Creatinine Ratio 23.6 H (6-22) Glucose 172 H (80-110) mg/dL Calcium 9.0 (8.4-10.2) mg/dL Magnesium 2.0 (1.6-2.3) mg/dL Total Bilirubin 0.5 (0.2-1.3) mg/dL AST 59 (17-59) IU/L ALT 66 H (<50) IU/L Alkaline Phosphatase 73 (38-126) U/L Total Creatine Kinase 317 H (55-170) U/L Troponin I < 0.012 (0.01-0.034) ng/mL Total Protein 6.7 (6.3-8.2) g/dL Albumin 4.1 (3.5-5.0) g/dL Globulin 2.6 (1.7-4.1) g/dL Albumin/Globulin Ratio 1.6 (1.0-2.8) Imaging Data Chest x-ray: Radiologist's Impression: PROCEDURE: XR CHEST 1V INDICATIONS: syncope TECHNIQUE: One view of the chest was acquired. COMPARISON: None. FINDINGS: Surgical changes and devices: None. Lungs and pleura: No dense consolidation or pleural effusion Mediastinum: Heart size within normal limits Bones and chest wall: Degenerative findings IMPRESSION: No acute radiographic abnormality on this single view study. Dictated by: Ayaz Guido M.D. on 04/23/2024 at 20:45 Approved by: Ayaz Guido M.D. on 04/23/2024 at 20:45 ECG Data Interpretation: Complete heart block. No ST T wave changes. Normal QTC MDM Narrative Medical decision making narrative: Multiple near syncopal episodes and new bradycardia. EKG appears to be either second-degree type 2 heart block or complete heart block. EKG shared with Dr. Marcelino of Cardiology. He states that it was difficult to tell if it was second-degree block type 2 or complete heart block. Recommended holding diltiazem and labetalol for 24-48 hours to see if washing out the drugs improves his heart block. Can transfer for Cardiology if inpatient medicine not comfortable with keeping patient on their service in [facility] Discussed patient case with on-call tele hospitalist Dr. Gee, who is not comfortable keeping patient in hospital since he was not in house and patient may likely need pacemaker. Patient accepted for transfer by [facility]. Patient has been bradycardic in the upper 20s and low 30s throughout his stay in the emergency department, however he has been asymptomatic and blood pressures have remained stable with MAP consistently greater than 65. No interventional therapies needed while in the ED. Critical Care Time Critical Care Time Critical Care Time: Yes Total Critical Care Time: 46 Attestation: Complete heart block requiring transfer, discussion with Interventional Cardiology Discharge Plan Departure Patient Disposition: [facility] Clinical Impression: AV heart block Prescriptions: No Action rosuvastatin 10 mg tablet 10 mg PO DAILY Qty: 90 3RF diltiazem HCl 240 mg capsule,extended release 24 hr 480 mg PO DAILY Qty: 180 3RF labetalol 100 mg tablet 100 mg PO BID Qty: 180 3RF (DME) BD Insulin Syringes 3/10 ML 5'16 x 31g 8MM See Rx Instructions .Route .MEDSUPPLY Qty: 350 3RF Rx Instructions: USE TO TEST BLOOD SUGARS 6X DAILY. losartan 100 mg tablet 100 mg PO DAILY Qty: 90 3RF insulin lispro [Humalog U-100 Insulin] 100 unit/mL solution See Rx Instructions .ROUTE .COMPLEX Qty: 180 3RF Dose Instruction: inject 1 unit PER 5 grams OF CARBOHYDRATES subcutaneously BEFORE A MEAL MAXIMUM DAILY DOSE OF 50 units Rx Instructions: Inject 1 unit PER 5 grams OF CARBOHYDRATES subcutaneously BEFORE A MEAL MAXIMUM DAILY DOSE OF 85 units// 6 VIALS PLEASE latanoprost 0.005 % drops EYE-BOTH (DME) iLet Insulin Pump Misc See Rx Instructions .ROUTE Rx Instructions: As directed minoxidil 2.5 mg tablet 2.5 mg PO DAILY Qty: 90 3RF Referrals: Te Jacques MD [Primary Care Provider] -
[2024-04-23 20:31] LABS: Add Manual Diff / Slide Review NO; Basophils Absolute Auto 0 /uL (0-100); Basophils Percent Auto 0.7 % (0-2); Eosinophils Absolute Auto 100 /uL (0-450); Eosinophils Percent Auto 1.4 % (2-4); Hematocrit 40.7 % (41-53); Hemoglobin 13.8 g/dL (13.5-17.5); Lymphocytes Absolute Auto 800 /uL (1100-4500); Lymphocytes Percent Auto 13.5 % (25-40); Mean Corpuscular HGB Conc 33.8 % (30-36); Mean Corpuscular Hemoglobin 30.2 PG (26-34); Mean Corpuscular Volume 89.1 fL (80-100); Monocytes Absolute Auto 800 /uL (0-900); Monocytes Percent Auto 12.8 % (3-14); Neutrophils Absolute Auto 4500 /uL (1500-7000); Neutrophils Percent Auto 71.6 % (50-75); Platelet Count 160 X10^3/uL (150-400); Red Blood Cell Count 4.57 X10^6/uL (4.5-5.9); Red Cell Distribution Width 13.2 % (11.6-14.8); White Blood Cell Count 6.3 X10^3/uL (4.5-11.0)
--- NOTE | 2024-04-23 20:31 | EKG_ITS ---
[facility] [address] [place] [address] Test Date: 2024-04-23 Pat Name: Suresh Chairez Department: 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
[2024-04-23 20:37] LABS: Alanine Aminotransferase 66 IU/L (<50); Albumin 4.1 g/dL (3.5-5.0); Albumin Globulin Ratio 1.6 (1.0-2.8); Alkaline Phosphatase 73 U/L (38-126); Aspartate Aminotransferase 59 IU/L (17-59); BUN Creatinine Ratio 23.6 (6-22); Bilirubin Total 0.5 mg/dL (0.2-1.3); Blood Urea Nitrogen 25 mg/dL (9-20); Carbon Dioxide 22 mmol/L (22-32); Chloride 107 mmol/L (98-107); Creatine Kinase 317 U/L (55-170); Estimated Glomerular Filt Rate > 60 mL/min (>60); Globulin 2.6 g/dL (1.7-4.1); Glucose 172 mg/dL (80-110); HEMOLYSIS < 15 (0-50); Potassium 4.5 mmol/L (3.4-5.1); Sodium 136 mmol/L (137-145); Total Protein 6.7 g/dL (6.3-8.2)
[2024-04-23 20:49] LABS: Troponin I < 0.012 ng/mL (0.01-0.034)
[2024-04-24] VITALS (14 sets, daily range): BP systolic 108–135; BP diastolic 56–61; PULSE 28–32; RESP 16–26; O2SAT 95–98
--- NOTE | 2024-04-24 03:01 | PC.NURSE ---
Report called to Stephania Velásquez at # [phone] ext [phone]. Report given to STEPHANIE Blackman.
--- NOTE | 2024-04-24 03:19 | PC.NURSE ---
Report given to STEPHANIE Palma with [facility].
== END 2024-04-24 03:24 | disposition short-term general hospital (02) ==
PROVIDERS: Emergency Provider Emergency Medicine; PCP Internal Medicine
DX: I44.30 Unspecified atrioventricular block (principal)
CPT/HCPCS: 36415; 71045; 80053; 82550; 83735; 84484; 85025; 85610; 93005; 99284; 99291

== ENCOUNTER → 2024-08-12 10:27 | Outpatient (CLI) | payer MEDICARE, OTHER, SELFPAY ==
[2024-08-12 11:11] LABS: BUN Creatinine Ratio 25.8 (6-22); Blood Urea Nitrogen 23 mg/dL (9-20); Calcium 9.4 mg/dL (8.4-10.2); Carbon Dioxide 27 mmol/L (22-32); Chloride 104 mmol/L (98-107); Estimated Glomerular Filt Rate > 60 mL/min (>60); Glucose 118 mg/dL (80-110); HEMOLYSIS < 15 (0-50); Potassium 4.3 mmol/L (3.4-5.1); Sodium 137 mmol/L (137-145)
[2024-08-12 11:16] LABS: Hemoglobin A1C% w Est Avg Glu 7.1 % (4.0-6.0)
[2024-08-12 11:41] LABS: Prostate Specific Antigen 2.78 ng/mL (0.10-4.00)
[2024-08-12 11:43] LABS: TSH w/ Reflex to FT4 1.22 uIU/mL (0.47-4.68)
[2024-08-12 12:25] LABS: Creatinine Urine Random 111.62 mg/dL
[2024-08-12 12:30] LABS: Microalbumin Urine Random 1.2 mg/dL (0-1.6)
== END ==
PROVIDERS: PCP Internal Medicine; Referring Provider Internal Medicine; Visit Provider Internal Medicine
DX: E10.9 Type 1 diabetes mellitus without complications (principal); N40.1 Benign prostatic hyperplasia with lower urinary tract symptoms; I10 Essential (primary) hypertension; N13.8 Other obstructive and reflux uropathy
CPT/HCPCS: 36415; 80048; 82043; 82570; 83036; 84153; 84443

== ENCOUNTER → 2024-11-25 08:55 | Outpatient (CLI) | payer MEDICARE, OTHER, SELFPAY ==
[2024-11-27 13:10] LABS: Mercury 21.9 ug/L (0.0-14.9)
== END ==
PROVIDERS: PCP Internal Medicine; Referring Provider Internal Medicine; Visit Provider Internal Medicine
DX: Z77.29 Contact with and (suspected) exposure to other hazardous substances (principal)
CPT/HCPCS: 36415; 83825

== ENCOUNTER 2025-02-10 07:07 | Day surgery (SDC) | payer MEDICARE, OTHER, SELFPAY ==
[2025-02-10] MEDS: LACTATED RINGERS 1,000 ML 42 ML IV (07:18)
[2025-02-10 07:23] VITALS: BP 169/82; PULSE 58; RESP 15; TEMP 36.1; O2SAT 98
--- NOTE | 2025-02-10 07:49 | PM.HP.IH.1 ---
History of Present Illness History of Present Illness Date Patient Seen: 02/10/25 Time Patient Seen: 07:49 Chief complaint: Screening Colonoscopy Narrative: Trent is a 69 year old man here for a colonoscopy. His last was in [address] Gaffney no polyps were found. He was instructed to have another colonoscopy this year. He thinks he may have had polyps on a colonoscopy before 2019. No family history of colon cancer. 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 Smoking Status: Former smoker alcohol intake: current Meds Home Medications and Allergies Home Medications Medication Instructions Recorded Confirmed Type latanoprost 0.005 % eye drops drp EYE-BOTH 08/20/23 11/25/24 History labetalol 100 mg tablet 100 mg PO BID #180 tabs 03/09/24 02/10/25 Rx subcutaneous insulin pump (iLet 03/23/24 06/23/24 History Insulin Pump) rosuvastatin 10 mg tablet 10 mg PO DAILY #90 tabs 09/16/24 02/10/25 Rx BD Insulin Syringes 3/10 ML #350 ea 09/21/24 Rx losartan 100 mg tablet 100 mg PO DAILY #90 tabs 11/30/24 02/10/25 Rx diltiazem HCl 240 mg capsule,24 480 mg (2 x 240 mg) PO DAILY #180 12/24/24 02/10/25 Rx hr,extended release caps minoxidil 2.5 mg tablet 2.5 mg PO DAILY #90 tabs 02/10/25 Rx Allergies Allergy/AdvReac Type Severity Reaction Status Date / Time Sulfa (Sulfonamide Allergy Severe Anaphylaxis Verified 11/25/24 07:50 Antibiotics) [SULFA (SULFONAMIDE ANTIBIOTICS)] lisinopril AdvReac Mild Cough Verified 11/25/24 07:50 Exam Vital Signs (past 8 hours): - 02/10/25 07:23 Temperature 96.9 F L Pulse Rate 58 L Respiratory Rate 15 Blood Pressure 169/82 H Pulse Oximetry 98 Oxygen Delivery Method Room Air Oxygen Delivery Method Room Air Const General: healthy appearing Assessment & Plan Assessment and plan (1) History of colonic polyps: Status: Acute Plan Colonoscopy Time-Based Coding :: [TOTAL MINUTES] spent with patient and on the chart (including review of chart, obtaining history, exam, reviewing outside data, placing orders, documenting exam and treatment plan, and counseling patient) on [DATE]. PROFEE Patient Scheduling Coordinator Document charge(s): No
[2025-02-10 08:54] VITALS: BP 134/74; PULSE 60; RESP 14; TEMP 36.2; O2SAT 98
--- NOTE | 2025-02-10 08:58 | P.OP.COLON_ITS ---
Operative Date/Time/Diagnoses Date of procedure: 02/10/25 Time of procedure: 08:58 Pre-op diagnosis: History of polyps Post-op diagnosis: same Procedure & Clinicians Study performed: Colonoscopy Same procedure as scheduled: Yes Surgeon: Chon Cage Procedure Notes Procedure in detail: Surgeon: Chon Cage MD Anesthesia: Roxana Mnuoz APPLICATIONS DEVELOPMENT ANALYST Procedure: The patient was brought to the endoscopy suite, placed in left lateral decubitus position. The patient was connected to monitoring devices. A time-out was performed. Sedation was administered. Once the patient was adequately sedated, a digital rectal exam was performed and was normal. The scope was then inserted and advanced to the cecum with some difficulty secondary to diverticulosis and the associated lack of compliance of the colon. Eventually the appendiceal orifice was reached and photographed. The terminal ileum was intubated and no abnormalities were identified. The scope was then slowly withdrawn over greater than 6 minutes. The mucosa was thoroughly inspected. There was pandiverticulosis greatest in the sigmoid colon. The scope was retroflexed in the rectum. No other abnormalities were found. The scope was straightened and removed. The patient was awakened and brought to recovery. Scope withdrawal time: 7 minutes Sedation time: 34 minutes EBL: 0 Findings: Pandiverticulosis greatest in the sigmoid colon, a stiff noncompliant left colon Post-procedure Recommendations: Colonoscopy in 10 years Disposition: PACU
[2025-02-10 09:01] VITALS: BP 123/75; PULSE 60; RESP 16; TEMP 36.2; O2SAT 98
[2025-02-10 09:06] VITALS: BP 134/86; PULSE 60; RESP 18; O2SAT 98
[2025-02-10 09:13] VITALS: BP 135/86; PULSE 78; RESP 16; TEMP 36.2; O2SAT 98
== END 2025-02-10 09:17 | disposition home or self-care (01) ==
PROVIDERS: PCP Internal Medicine; Referring Provider Surgery; Visit Provider Surgery
PROC: 0DJD8ZZ Inspection of Lower Intestinal Tract, Via Natural or Artificial Opening Endoscopic (ICD-10-PCS; CPT 45378; principal; 2025-02-10 08:15)
DX: Z12.11 Encounter for screening for malignant neoplasm of colon (principal); Z86.0100 Personal history of colon polyps, unspecified; K57.30 Diverticulosis of large intestine without perforation or abscess without bleeding
CPT/HCPCS: G0105; J2704